=== PATIENT | female | born 1955 | race Hispanic/Latino ===

== ENCOUNTER 2019-02-01 09:45 | Observation (INO) | payer MEDICARE ==
--- NOTE | 2019-01-29 11:32 | Diagnostic Imaging Report ---
EXAMINATION: PA and lateral views of the chest. COMPARISON: None CLINICAL HISTORY: Preoperative study for hysterectomy DISCUSSION: Lines/tubes: None. Lungs: The lungs are well inflated and clear. There is no evidence of pneumonia or pulmonary edema. Pleura: There is no pleural effusion or pneumothorax. Heart and mediastinum: The cardiomediastinal silhouette is normal. Bones and soft tissues: No acute bony abnormalities. Degenerative changes in the thoracic spine. Calcific left rotator cuff tendinosis. IMPRESSION: No acute cardiopulmonary abnormalities. Signed by: Dr. Yash Chirinos M.D. on 01/29/2019 11:28 AM
[2019-01-29 11:56] LABS: BASOPHILS # (AUTO) 0.1 (0.0-0.1); BASOPHILS % 1.1 % (0.0-1.0); EOSINOPHILS # (AUTO) 0.2 (0.0-0.4); HEMATOCRIT 37.7 % (34.2-44.1); HEMOGLOBIN 12.6 g/dL (12.0-16.0); LYMPHOCYTES # (AUTO) 2.4 (1.0-3.2); LYMPHOCYTES % 29.7 % (18.0-39.1); MEAN CORPUSCULAR HEMOGLOBIN 29.7 pg (28-32); MEAN CORPUSCULAR HGB CONC 33.4 g/dL (31-35); MEAN CORPUSCULAR VOLUME 88.9 fL (81-99); MONOCYTES # (AUTO) 0.7 (0.2-0.8); NEUTROPHILS # (AUTO) 4.8 (2.1-6.9); PLATELET COUNT 288 x10e3/uL (140-360); RED BLOOD COUNT 4.24 x10e6/uL (3.6-5.1); RED CELL DISTRIBUTION WIDTH 12.4 % (11.7-14.4)
[2019-01-29 12:33] LABS: ALANINE AMINOTRANSFERASE 17 IU/L (0-55); ALBUMIN/GLOBULIN RATIO 1.2 (0.8-2.0); ALKALINE PHOSPHATASE 94 IU/L (40-150); ANION GAP 15.7 mmol/L (8-16); BLOOD UREA NITROGEN 19 mg/dL (7-26); BUN/CREATININE RATIO 24 (6-25); CALCIUM 10.1 mg/dL (8.4-10.2); CARBON DIOXIDE 27 mmol/L (22-29); CHLORIDE 100 mmol/L (98-107); CREATININE, SERUM 0.79 mg/dL (0.57-1.11); EST GLOMERULAR FILTRATION RATE > 60 ML/MIN (60-); GLUCOSE 105 mg/dL (74-118); POTASSIUM 3.7 mmol/L (3.5-5.1); SODIUM 139 mmol/L (136-145)
[~2019-02-01] VITALS: Ht 160 cm; Wt 86.7 kg
[~2019-02-01 09:45] MED LIST: ACETAMINOPHEN325 M1 PO; ALEVE220 M1 PO; AMLODIPINE BESY10 MG PO; GLIPIZIDE-METF1 EAC2 PO; HYDROCHLOROTHIA25 MG PO; LEVOTHYROXINE50 MCG PEG; LISINOPRIL40 MG PO; LOVASTATIN20 MG PO; THERA TEARS1 EACH; TRAMADOL/APAP PO; [UNRECOGNIZED DRUG - OTHER] PO
--- OUTSIDE RECORDS SUMMARY | 2019-02-01 09:59 | XMS REPORT ---
Author Author [facility] Address Unknown Phone Unavailable Care Team Providers Care [facility] Maintenance Technician Name Role Phone KEELEY MONROY Unavailable Unavailable Problems This patient has no known problems. Allergies, Adverse Reactions, Alerts This patient has no known allergies or adverse reactions. Medications This patient has no known medications. Results Test Description Test Time Test Comments Text Results Atomic Results Result Comments CHEST 2 VIEWS 2019-01-29 11:26:00 [facility] [address] [place] [address] Patient Name: ROSEANNA QUICK MR #: [id number] : 1955 Age/Sex: 63/F Req #: [id number] [facility] Physician: Ordered by: KEELEY MONROY MD Report #: [id number] Location: OR Room/Bed: Procedure: [id number] DX/CHEST 2 VIEWS Exam Date: 01/29/19 Exam Time: 1105 REPORT STATUS: Signed EXAMINATION: PA and lateral views of the chest. NAHED RISON: None CLINICAL HISTORY: Preoperative study for hysterectomy DISCUSSION: Lines/tubes: None. Lungs: The lungs are well inflated and clear. There is no evidence of pneumonia or pulmonary edema. Pleura: There is no pleural effusion or pneumothorax. Heart and mediastinum: The cardiomediastinal silhouette is normal. Bones and soft tissues: No acute bony abnormalities. Degenerative changes in the thoracic spine. Calcific left rotator cuff tendinosis. IMPRESSION: No acute cardiopulmonary abnormalities. Signed by: Dr. James Mckinney M.D. on 01/29/2019 11:28 AM Dictated By: JAMES MCKINNEY MD 27 Transcribed By: FEDERICA on 01/29/191127 COPY TO: KEELEY MONROY MD
[2019-02-01] MEDS ORDERED: [UNRECOGNIZED DRUG - OTHER] PO (10:30)
[2019-02-01] MEDS ORDERED: OMEPRAZOLE40 MG PO (10:31)
[2019-02-01] MEDS ORDERED: BACTRIM DS TAB1 EACH PO (10:31)
[2019-02-01] MEDS ORDERED: CEFAZOLIN SOD 1 GM/NS 50ML 100 ML IV ONE (10:57)
[2019-02-01] MEDS ORDERED: BUPIVACAINE 0.25%/EPI 30ML SDV INJ ONE (11:48)
[2019-02-01] MEDS ORDERED: ESTROGENS CONJUGATED VAGINAL CR 45 GM TUBE PV ONE (11:48)
[2019-02-01] MEDS ORDERED: SODIUM CHLORIDE 0.9% 50ML 0 ML ONE (11:48)
[2019-02-01] MEDS ORDERED: MEPERIDINE HCL INJ 25 MG/ML VIAL IV PRN (13:15)
[2019-02-01] MEDS ORDERED: ONDANSETRON HCL INJ 2MG/ML 2ML 2 MG/ML VIAL IV PRN (13:15)
[2019-02-01] MEDS ORDERED: ONDANSETRON HCL INJ 2MG/ML 2ML 2 MG/ML VIAL ONE (14:21)
[2019-02-01] MEDS ORDERED: PROPOFOL IV EMULSION 10 MG/ML 20 ML VIAL ONE (14:21)
[2019-02-01] MEDS ORDERED: SEVOFLURANE INHAL SOLN 250 ML PEN BTL ONE (14:21)
[2019-02-01] MEDS ORDERED: ACETAMINOPHEN 1000 MG/100 ML IV ONE (14:21)
[2019-02-01] MEDS ORDERED: NEOSTIGMINE 5 MG/5ML SYR ONE (14:21)
[2019-02-01] MEDS ORDERED: DEXAMETHASONE SOD PHOS INJ 4 MG/ML VIAL ONE (14:21)
[2019-02-01] MEDS ORDERED: LIDOCAINE HCL 2% LOCAL INJ 5 ML SDV VIAL INJ ONE (14:21)
[2019-02-01] MEDS ORDERED: GLYCOPYRROLATE INJ 1MG/ 5 ML SYR ONE (14:21)
[2019-02-01] MEDS ORDERED: ROCURONIUM BROMIDE 10 MG/ML 5ML VIAL ONE (14:21)
[2019-02-01] MEDS ORDERED: FENTANYL CITRATE/PF 100MCG/2 ML INJ ONE ×2 (15:19→18:23)
[2019-02-01 16:00] VITALS: BP 101/54
[2019-02-01 16:38] VITALS: BP 101/54
[2019-02-01] MEDS: HYDROCODONE/APAP 5MG-325MG TAB PO PRN ×2 (16:45→22:17)
--- NOTE | 2019-02-01 17:25 | NUR ---
Pt received from OR via stretcher. Pt is alert and oriented x4. Pt is on O2 2L NC. Cohen draining clear isaiah urine, and vaginal packing in place. IV fluid ongoing. Oriented to staff and surroundings. Encouraged to press call yang if help needed. Fall precautions maintained. Call yang within reach. Will monitor
[2019-02-01] MEDS ORDERED: DEXTROSE 50% SYRINGE 50 ML IV PRN ×2 (18:15)
[2019-02-01] MEDS ORDERED: MIDAZOLAM HCL 2 MG/2 ML VIAL ONE (18:23)
[2019-02-01] MEDS: LACTATED RINGER'S 1,000 ML IV SCH (18:48)
--- NOTE | 2019-02-01 19:00 | NUR ---
Received bedside report from day shift RN. The patient is sitting up on the edge of the bed and not in distress. Call light within reach, wheels lock, side rails up x2. Addendum: 02/01/19 at 1916 by Ruslan Deshpande RN The patient is laying on the bed and not in distress except for pain in the pelvis area. Patient requested pain medication if available. Patient was instructed to drink fluid to help elevate BP. Verbalized understanding. Family members at bedside. Call light within reach, side rails up x2, bed set low and wheels lock. Monitor patient for pain.
--- NOTE | 2019-02-01 19:11 | NUR ---
Pt resting in bed comfortably. Handoff given to oncoming nurse.
[2019-02-01 19:30] VITALS: BP 93/62
[2019-02-01] MEDS: ACETAMINOPHEN 325 MG TAB PO PRN (19:48)
[2019-02-01 20:00] VITALS: BP 93/62
[2019-02-01] MEDS: INSULIN REGULAR, HUMAN 100 UNIT/1 ML 3ML VIAL SQ SCH (20:29)
--- NOTE | 2019-02-01 22:46 | Operative Report ---
DATE OF PROCEDURE: 02/01/2019 SURGEON: Elvira Moreno MD PREOPERATIVE DIAGNOSIS: Pelvic organ prolapse. POSTOPERATIVE DIAGNOSIS: Pelvic organ prolapse. PROCEDURE: Total vaginal hysterectomy, anterior repair, procedure repair, sacrospinous colpopexy. BLOOD BANK COORDINATOR: Jasmeet. COMPLICATIONS: None. ESTIMATED BLOOD LOSS: 50 mL. DESCRIPTION OF PROCEDURE: The patient was taken to the OR. General anesthesia was induced. She was prepped and draped in a sterile fashion, placed in dorsal lithotomy position after examination. A weighed speculum was placed inside the vagina. Cervix was grasped with single-tooth tenaculum. The vagina was injected with Marcaine with epinephrine 0.25% around the cervix. A circumferential vaginal skin incision was made with a scalpel at the level of the bladder line. The bladder was dissected off the cervix using curved Roger scissors and gentle sweeps of latex wrapped on the index finger. The pouch of Ion was opened with Metzenbaum scissor and a weighted speculum was advanced in the pouch of Ion. Using the LigaSure, the uterosacral ligaments were clamped and vessels were occluded and the pedicle was cut. The same was repeated on the other side. More bites were made on each side of the cervix using the LigaSure. Uterine vessels were clamped, vessels occluded and cut until the uterus in the fundus was clipped outside of the introitus, with a finger around the uterus and anterior pouch was opened with Metzenbaum scissors. Using the LigaSure, the apex of the broad ligament on each side of the uterus was held, cauterized, and cut. Uterus was freed and sent to pathology. Hemostasis was found to be adequate. Following this, the plain catgut 3-0 sutures were used for my pursestring suture around the prolapsed bladder. The pelvic fascia around the inferior pubic ramus on each side of the pelvis was pierced, ischial spinous felt and sacrospinous ligament was palpated using the Capio needle martinez. Vicryl suture was applied into the middle of the sacrospinous ligament on the side of the pelvis. The other end was hitched to the vaginal fold. Pubocervical ligament on each side approximated using Vicryl 0. Excess vaginal skin was trimmed off using curved Roger scissors and the vagina was closed with interlocking stitches of Vicryl 0. The sacrospinous suture was tied to the vaginal vault and the vaginal vault was lifted on both sides. Following this, attention was made to the posterior repair with two Allis clamps applied on the side of the fourchette and skin in between was cut with curved Roger scissors. The vagina was dissected off the perineum and rectum using Metzenbaum scissors and two flaps of vagina dissected off the underlying rectum using both sharp and blunt dissection. The levator ani on each side approximated using Vicryl 0 suture and excess vaginal skin was trimmed off using curved Roger scissors. The vagina was closed with a continuous interlocking stitches of Vicryl 0. Suction irrigation of peritoneal cavity with warm saline. The rectal and perineum was approximated using Vicryl 2-0 subcu stitch. A catheter was placed inside the bladder and the vaginal was packed. The patient tolerated procedure well. Lap, instrument, and needle count was correct x2 at the end of procedure. Elvira Moreno MD DD/MERRITT /[id number]
--- NOTE | 2019-02-01 23:34 | NUR ---
The patient's daughter stated her mother is feeling warm and would like to check her blood glucose. RN checked the blood sugar recorded at 114 which is considered in the normal range. Blood pressure continues to be low at 91/59 and temperature at 100.4. RN increased the IV rate from 125 to 150 and make the room colder. Will monitor the patient's BP and temp and contact MD if needed.
[2019-02-01 23:49] VITALS: BP 99/51
--- NOTE | 2019-02-01 23:49 | NUR ---
RN checked the patient's BP and temperature recorded at 99/51 and 98.8 The VS machine was left at bedside to continue to monitor the patient's BP/temp
[2019-02-02] VITALS (10 sets, daily range): BP systolic 91–128; BP diastolic 53–70
[2019-02-02] MEDS: ACETAMINOPHEN 325 MG TAB PO PRN ×2 (01:06→10:19)
[2019-02-02] MEDS: LACTATED RINGER'S 1,000 ML IV SCH ×4 (01:41→23:35)
--- NOTE | 2019-02-02 02:03 | NUR ---
Patient is placed in Trendelenburg to help elevate BP from 89/55 to 99/55. Continue to monitor the patient's BP and temperature
[2019-02-02] MEDS: HYDROCODONE/APAP 5MG-325MG TAB PO PRN ×3 (02:32→17:10)
--- NOTE | 2019-02-02 02:54 | NUR ---
Patient continues to get Elyria 5 mg instead of Demerol IV due to low BP. Continue to monitor the patient's BP while giving narcotic pain medication.
[2019-02-02] MEDS ORDERED: KETOROLAC TROMETHAMINE 60 MG/2 ML VIAL IM ONE (04:15)
[2019-02-02] MEDS ORDERED: SODIUM CHLORIDE 0.9% 500ML 500 ML IV ONE (04:30)
[2019-02-02] MEDS ORDERED: KETOROLAC TROMETHAMINE 30 MG/ML VIAL IV ONE (04:30)
--- NOTE | 2019-02-02 04:41 | NUR ---
Received order from to give Toradol 30 mg IV and NS 500 mL bolus. RN also gave status report to Dr. Moreno on the orders and the patient's status. replied with "Ok. Thank you" with no further instructions. Continue to monitor the patient's pain, temp and BP
[2019-02-02 05:29] LABS: BASOPHILS % 0.3 % (0.0-1.0); HEMATOCRIT 29.2 % (34.2-44.1); HEMOGLOBIN 9.9 g/dL (12.0-16.0); LYMPHOCYTES # (AUTO) 2.2 (1.0-3.2); LYMPHOCYTES % 16.1 % (18.0-39.1); MEAN CORPUSCULAR HEMOGLOBIN 30.1 pg (28-32); MEAN CORPUSCULAR HGB CONC 33.9 g/dL (31-35); MEAN CORPUSCULAR VOLUME 88.8 fL (81-99); MONOCYTES # (AUTO) 1.5 (0.2-0.8); MONOCYTES % 11.2 % (4.4-11.3); NEUTROPHILS # (AUTO) 9.7 (2.1-6.9); PLATELET COUNT 207 x10e3/uL (140-360); RED BLOOD COUNT 3.29 x10e6/uL (3.6-5.1); RED CELL DISTRIBUTION WIDTH 12.4 % (11.7-14.4)
[2019-02-02] MEDS: LEVOTHYROXINE SODIUM 125 MCG TAB PEG SCH (05:39)
--- NOTE | 2019-02-02 05:47 | NUR ---
BP at 105/59 after administering a bolus of 500 mL NS. Patient is on LR at 125 mL/hr. Will continue to monitor the patient's BP
[2019-02-02 05:51] LABS: ALANINE AMINOTRANSFERASE 14 IU/L (0-55); ALBUMIN 2.9 g/dL (3.5-5.0); ALBUMIN/GLOBULIN RATIO 1.1 (0.8-2.0); ALKALINE PHOSPHATASE 61 IU/L (40-150); ANION GAP 12.2 mmol/L (8-16); BLOOD UREA NITROGEN 8 mg/dL (7-26); BUN/CREATININE RATIO 11 (6-25); CALCIUM 8.7 mg/dL (8.4-10.2); CARBON DIOXIDE 23 mmol/L (22-29); CHLORIDE 97 mmol/L (98-107); CREATININE, SERUM 0.72 mg/dL (0.57-1.11); EST GLOMERULAR FILTRATION RATE > 60 ML/MIN (60-); GLUCOSE 109 mg/dL (74-118); POTASSIUM 4.2 mmol/L (3.5-5.1); SODIUM 128 mmol/L (136-145)
[2019-02-02] MEDS ORDERED: LEVOTHYROXINE SODIUM 50 MCG TAB PEG SCH (06:00)
--- NOTE | 2019-02-02 06:32 | NUR ---
Cohen catheter removed @ 0632 per MD order POD#1. Patient tolerated well. Day shift RN will need to follow up for patient to void in the next 4-6 hours.
[2019-02-02] MEDS: INSULIN REGULAR, HUMAN 100 UNIT/1 ML 3ML VIAL SQ SCH ×4 (07:30→21:00)
[2019-02-02] MEDS: MULTIVITAMINS/MINERALS TAB PO SCH (08:20)
[2019-02-02] MEDS: METFORMIN HCL 500 MG TAB PO SCH ×2 (08:20→17:10)
[2019-02-02] MEDS: GLIPIZIDE 5 MG TAB PO SCH ×2 (08:20→17:10)
[2019-02-02] MEDS: TRIMETHOPRIM/SULFAMETHOXAZOLE 160-800 MG TAB PO SCH ×2 (08:20→17:10)
[2019-02-02] MEDS: PANTOPRAZOLE SOD 40 MG TABEC PO SCH (08:20)
[2019-02-02] MEDS: HYDROCHLOROTHIAZIDE 25 MG TAB PO SCH (08:45)
[2019-02-02] MEDS: AMLODIPINE BESYLATE 10 MG TAB PO SCH (08:45)
[2019-02-02] MEDS ORDERED: METFORMIN HCL PO SCH (09:00)
[2019-02-02] MEDS ORDERED: [UNRECOGNIZED DRUG - OTHER] PO SCH (09:00)
[2019-02-02] MEDS ORDERED: GLIPIZIDE PO SCH (09:00)
[2019-02-02] MEDS: DOCUSATE SODIUM 100 MG CAP PO PRN (10:21)
--- NOTE | 2019-02-02 11:10 | NUR ---
notified by PCT that patient's blood pressure is 84/48. assessed patient who is non-symptomatic, placed patient in Trendelenburg and retook blood pressure which was 96/53. allowed patient to stay in Trendelenburg for an additional 5 minutes and retook blood pressure again which was then 102/53 with a heart rate of 68. patient is still asymptomatic. call yang within reach, bed in lowest position and family at bedside.
[2019-02-02] MEDS ORDERED: ONDANSETRON HCL 4 MG ORAL DISINTEGRATING TAB PO PRN (12:30)
--- NOTE | 2019-02-02 13:13 | NUR ---
patient still unable to void after larson removal. patient has attempted to void with no success and reports not feeling the sensation of needing to void. bladder scan of patient shows only 74 mL, will continue to monitor and bladder scan after next attempt to void.
--- NOTE | 2019-02-02 15:15 | NUR ---
patient remains unable to void, per MD orders larson catheter is reinserted at this time. one attempt made and patient tolerated well. 200 mL of clear, dark yellow urine obtained.
--- NOTE | 2019-02-02 20:48 | NUR ---
PATIENT ASSISTED BACK TO BED, SHE C/O ABDOMINAL PAIN AND NAUSEA, MEDICATED WITH DEMEROL AND ZOFRAN ORDERED. CALL LIGHT WITHIN EASY REACH, SHE'S INSTRUCTED TO CALL FOR ASSISTANCE NEEDED.
[2019-02-03] MEDS: DOCUSATE SODIUM 100 MG CAP PO PRN (00:54)
[2019-02-03] MEDS: HYDROCODONE/APAP 5MG-325MG TAB PO PRN ×3 (01:04→09:15)
--- NOTE | 2019-02-03 01:04 | NUR ---
PATIENT C/O PAIN TO THE ABDOMEN, MEDICATED WITH NORCO 1TAB ORDERED. CALL LIGHT WITHIN EASY REACH, ASSISTED WITH ADLS, SHE'S INSTRUCTED TO CALL FOR ASSISTANCE NEEDED.
[2019-02-03 04:00] VITALS: BP 120/67
--- NOTE | 2019-02-03 04:05 | NUR ---
PATIENT ASSISTED TO THE TOILET, EMERGENCE CALL LIGHT WITHIN EASY REACH, SHE'S TOLD TO CALL FOR ASSISTANCE UPON COMPLETION SO THAT SHE WILL BE ASSISTED BACK TO THE BED.
[2019-02-03] MEDS: LEVOTHYROXINE SODIUM 125 MCG TAB PEG SCH (06:12)
[2019-02-03] MEDS: INSULIN REGULAR, HUMAN 100 UNIT/1 ML 3ML VIAL SQ SCH ×2 (07:30→11:30)
[2019-02-03 08:09] VITALS: BP 103/66
[2019-02-03 08:20] VITALS: BP 103/66
[2019-02-03] MEDS: GLIPIZIDE 5 MG TAB PO SCH (08:20)
[2019-02-03] MEDS: PANTOPRAZOLE SOD 40 MG TABEC PO SCH (08:20)
[2019-02-03] MEDS: METFORMIN HCL 500 MG TAB PO SCH (08:20)
[2019-02-03] MEDS: TRIMETHOPRIM/SULFAMETHOXAZOLE 160-800 MG TAB PO SCH (08:20)
[2019-02-03] MEDS: MULTIVITAMINS/MINERALS TAB PO SCH (08:20)
[2019-02-03] MEDS: HYDROCHLOROTHIAZIDE 25 MG TAB PO SCH (08:56)
[2019-02-03] MEDS: AMLODIPINE BESYLATE 10 MG TAB PO SCH (08:56)
--- NOTE | 2019-02-03 09:04 | NUR ---
larson discontinued at this time, catheter in tact and patient tolerated well. patient will be due to void in approximately 6 hours. patient is aware and is continuing to drink fluids to encourage the need to void.
[2019-02-03] MEDS: LACTATED RINGER'S 1,000 ML IV SCH (09:20)
--- NOTE | 2019-02-03 11:04 | NUR ---
CM spoke with patient nurse. She stated that the pt did not go home yesterday, because she was not able to void after larson removed. They also had to reinsert the larson. It was removed today, and waiting on pt to void. Plan is if she does not void, she will go home with a larson and follow up with her physician.
[2019-02-03 11:30] VITALS: BP 115/60
--- NOTE | 2019-02-03 13:41 | NUR ---
bladder scan on patient shows bladder is holding 347 mL of urine and she is still unable to void. notifying MD and awaiting further instructions.
[2019-02-03] MEDS ORDERED: TYLENOL WITH C1 EACH PO (14:51)
[2019-02-03 15:40] VITALS: BP 129/63
--- NOTE | 2019-02-03 15:40 | NUR ---
patient alert and oriented, discharge instructions given at this time with family at bedside. all verbalized understanding. IV discontinued, catheter in tact and pressure dressing applied. Cohen catheter in place and not be removed. patient to be wheeled to personal auto for family to drive home.
== END 2019-02-03 15:58 | disposition home or self-care (01) ==
LOC: OR 09:45 → PACU V 13:07 → IMCU 16:23
PROVIDERS: ADMIT Obstetrics & Gynecology; ATTEND Obstetrics & Gynecology
DX: N81.89 Other female genital prolapse (principal); I10 Essential (primary) hypertension; E03.9 Hypothyroidism, unspecified; E11.9 Type 2 diabetes mellitus without complications; E78.00 Pure hypercholesterolemia, unspecified; Z01.810 Encounter for preprocedural cardiovascular examination; Z01.812 Encounter for preprocedural laboratory examination; Z01.811 Encounter for preprocedural respiratory examination; R35.0 Frequency of micturition
CPT/HCPCS: 36415 ×4; 57260; 85025 ×2; 58260; 71046; 80053 ×2; 82948 ×3; 88307; 88311; 93005; 96376; G0378 ×3; J0131; J0690; J1100; J1817; J1885 ×2; J2001; J2175; J2250; J2405; J2704; J3490; J7040; J7121 ×3; Q0162; S0164 ×2; 96374; J3010

== ENCOUNTER → 2021-02-10 | Outpatient (CLI) | payer MEDICARE ==
[~2021-02-10] MED LIST changes: +BACTRIM DS TAB1 EACH PO; +OMEPRAZOLE40 MG PO; +TYLENOL WITH C1 EACH PO; +[UNRECOGNIZED DRUG - OTHER] PO
== END ==
LOC: MAMMO 10:32
PROVIDERS: ATTEND Internal Medicine
DX: Z12.31 Encounter for screening mammogram for malignant neoplasm of breast (principal)
CPT/HCPCS: 77067

== ENCOUNTER → 2021-02-23 | Outpatient (CLI) | payer MEDICARE | LOC: MAMMO 13:34 | PROVIDERS: ATTEND Internal Medicine | DX: N64.89 Other specified disorders of breast (principal) ==